=== PATIENT | female | born 1960 | race American Indian/Alaskan Native ===

== ENCOUNTER 2016-10-07 17:54 | Emergency (ER) | payer BC ==
[2016-10-07] MEDS ORDERED: CATAPRES PO ONE (18:05)
[2016-10-07 18:51] LABS: Hematocrit 41.5 % (30.3-42.9); Hemoglobin 13.4 gm/dl (10.1-14.3); Mean Corpuscular HGB Conc 32 % (30-34); Mean Corpuscular Hemoglobin 28 pg (28-32); Mean Corpuscular Volume 86 fl (79-97); Platelet Count 200 K/mm3 (140-440); Red Blood Count 4.84 M/mm3 (3.65-5.03); Red Cell Distribution Width 14.1 % (13.2-15.2); White Blood Count 9.5 K/mm3 (4.5-11.0)
[2016-10-07 19:02] LABS: Carbon Dioxide 28 mmol/L (22-30)
[2016-10-07 19:03] LABS: Anion Gap 18 mmol/L; BUN/Creatinine Ratio 21.42; Blood Urea Nitrogen 15 mg/dL (7-17); Calcium 9.3 mg/dL (8.4-10.2); Chloride 97.4 mmol/L (98-107); Glucose 232 mg/dL (65-100); Sodium 139 mmol/L (137-145)
[2016-10-07 19:19] LABS: Bacteria,Urine 1+ /HPF (Negative); Bilirubin,Urine NEG (Negative); Blood,Urine NEG (Negative); Ketones,Urine NEG (Negative); Leukocyte Esterase,Urine LG (Negative); Mucus,Urine FEW /HPF; Nitrite,Urine NEG (Negative); Urobilinogen,Urine < 2.0 mg/dL (<2.0)
[2016-10-07] MEDS ORDERED: TORADOL IV ONE (20:02)
[2016-10-07] MEDS ORDERED: APRESOLINE IV ONE (20:02)
--- NOTE | 2016-10-07 20:07 | Emergency Department Report ---
ED Headache HPI - General Chief Complaint: High BP Stated Complaint: HIGH BP Time Seen by Provider: 10/07/16 19:29 Source: patient Exam Limitations: no limitations - History of Present Illness Initial Comments: 56 yo female patient with a history of diabetes and hypertension presents to the hospital with complaints of uncontrolled high blood pressure, headache, and neck pain. Patient states that Wesley (3 days ago) morning she woke up with right-sided neck pain. She initially thought she slept wrong. Pain is constant , aching, rated 8/10 intensity, and worse with moving head to the right. Patient denies posterior neck pain. She also complains of frontal headache and pain behind her eyes since yesterday. Headache is intermittent and sharp. No aggravating or alleviating factors. Patient reported blurred vision to triage states she has chronic blurry vision and requires the use of glasses and does not report acute change. Patient checked her blood pressure today and found it to be elevated. She admits that she did not take her blood pressure medication yesterday because she forgot but she did take her dose today. Patient takes atenolol 50 mg daily, metformin twice a day, insulin, and simvastatin. She states she supposedly on atenolol/diuretic medication but it appears that the pharmacy gave her just plain atenolol for 2-3 weeks. She did not realize that her current blood pressure medication lacked the diuretic that she is supposed to be on until I brought it to her attention. She states that the pharmacy must have filled the wrong refill since she used to take just plain atenolol in the past Allergies/Adverse Reactions: Allergies No Known Allergies Allergy (Verified 06/21/14 10:28) Home Medications: Ambulatory Orders Atenolol [Tenormin] 50 mg PO DAILY 10/07/16 Atenolol/Chlorthalidone [Tenoretic 50-25] 1 tab PO QDAY #30 tab 10/07/16 Ibuprofen [Motrin] 800 mg PO Q8HR PRN #30 tablet 10/07/16 Simvastatin [Zocor TAB] 20 mg PO QHS 10/07/16 Syringe & Needle,Insulin,1 ml [Insulin Syringe/Needle 1 ML] 24 each [facility] metFORMIN [Glucophage] 500 mg PO BID 10/07/16 traMADol [Ultram 50 MG tab] 50 mg PO Q6HR PRN #20 tablet 10/07/16 ED Review of Systems ROS: Stated complaint: HIGH BP Other details as noted in HPI Comment: All other systems reviewed and negative Other: Constitutional: No fevers chills Eyes: No eye pain visual changes ENT: No ear pain or throat pain Neck: As per HPI Respiratory: Denies cough wheezing shortness of breath Cardiovascular: Denies chest pain, palpitations, syncope GI: Denies abdominal pain, nausea, vomiting, diarrhea : Denies dysuria Musculoskeletal: Denies back pain Skin: Denies rash, lesions, erythema Neurologic: as per hpi Psychiatric: Denies suicidal ideation, hallucinations ED Past Medical Hx - Past Medical History Hx Hypertension: Yes Hx Diabetes: Yes - Surgical History Additional Surgical History: Hyst. - Social History Smoking Status: Former Smoker Substance Use Type: None - Medications Home Medications: Home Medications Medication Instructions Recorded Confirmed Last Taken Type Atenolol [Tenormin] 50 mg PO DAILY 10/07/16 10/07/16 1 Day Ago History 50 Atenolol/Chlorthalidone [Tenoretic 1 tab PO QDAY #30 tab 10/07/16 Unknown Rx 50-25] Ibuprofen [Motrin] 800 mg PO Q8HR PRN #30 tablet 10/07/16 Unknown Rx Simvastatin [Zocor TAB] 20 mg PO QHS 10/07/16 10/07/16 1 Day Ago History 20 Syringe & Needle,Insulin,1 ml 24 each [facility] HS 10/07/16 10/07/16 1 Day Ago History [Insulin Syringe/Needle 1 ML] 24 metFORMIN [Glucophage] 500 mg PO BID 10/07/16 10/07/16 1 Day Ago History 500 traMADol [Ultram 50 MG tab] 50 mg PO Q6HR PRN #20 tablet 10/07/16 Unknown Rx ED Physical Exam - General Limitations: No Limitations - Other Other exam information: General: No limitations, patient is alert in no acute distress Head exam: Atraumatic, normocephalic Eyes exam: Normal appearance, pupils equal reactive to light, extraocular movements intact ENT: Moist mucous membrane, normal oropharynx Neck exam: Normal inspection, full range of motion, no meningismus, tenderness to right sternocleidomastoid increased pain with turning head to the right Respiratory exam: Clear to auscultation bilateral, no wheezes, rales, crackles Cardiovascular: Normal rate and rhythm, normal heart sounds Abdomen: Soft, nondistended, and nontender, with normal bowel sounds, no rebound, or guarding Extremity: Full range of motion normal inspection no deformity Back: Normal Inspection, full range of motion, no tenderness Neurologic: Alert, oriented x3, cranial nerves intact, no motor or sensory deficit Psychiatric: normal affect, normal mood Skin: Warm, dry, intact ED Course Vital Signs 10/07/16 10/07/16 10/07/16 17:58 19:08 19:55 Temperature 97.5 F L Pulse Rate 66 70 69 Respiratory 18 18 18 Rate Blood Pressure 224/113 245/116 Blood Pressure 214/91 [Left] O2 Sat by Pulse 100 97 Oximetry 10/07/16 10/07/16 10/07/16 20:09 20:36 20:53 Temperature Pulse Rate 72 80 Respiratory 18 18 Rate Blood Pressure 189/89 Blood Pressure 189/82 [Left] O2 Sat by Pulse 98 Oximetry - Reevaluation(s) Reevaluation #1: 10/07/16 20:08 Patient see clonidine 0.2 mg in triage with minimal reduction in blood pressure. Additional hydralazine 10 mg IV and Toradol for pain ordered in the ED 10/07/16 21:13 BP improved after Hydralazine. Anthony improved ED Medical Decision Making - Lab Data Result diagrams: 10/07/16 18:28 10/07/16 18:25 Lab Results 10/07/16 10/07/16 10/07/16 Range/Units 18:25 18:28 18:30 WBC 9.5 (4.5-11.0) K/mm3 RBC 4.84 (3.65-5.03) M/mm3 Hgb 13.4 (10.1-14.3) gm/dl Hct 41.5 (30.3-42.9) % MCV 86 (79-97) fl MCH 28 (28-32) pg MCHC 32 (30-34) % RDW 14.1 (13.2-15.2) % Plt Count 200 (140-440) K/mm3 Sodium 139 (137-145) mmol/L Potassium 4.0 (3.6-5.0) mmol/L Chloride 97.4 L (98-107) mmol/L Carbon Dioxide 28 (22-30) mmol/L Anion Gap 18 mmol/L BUN 15 (7-17) mg/dL Creatinine 0.7 (0.7-1.2) mg/dL Estimated GFR > 60 ml/min BUN/Creatinine Ratio 21.42 % Glucose 232 H (65-100) mg/dL Calcium 9.3 (8.4-10.2) mg/dL Urine Color Yellow (Yellow) Urine Turbidity Cloudy (Clear) Urine pH 6.0 (5.0-7.0) Ur Specific [place] 1.015 (1.003-1.030) Urine Protein 100 mg/dl (Negative) mg/dL Urine Glucose (UA) 50 (Negative) mg/dL Urine Ketones Neg (Negative) mg/dL Urine Blood Neg (Negative) Urine Nitrite Neg (Negative) Urine Bilirubin Neg (Negative) Urine Urobilinogen < 2.0 (<2.0) mg/dL Ur Leukocyte Esterase Lg (Negative) Urine WBC (Auto) 123.0 H (0.0-6.0) /HPF Urine RBC (Auto) 4.0 (0.0-6.0) /HPF U Epithel Cells (Auto) 2.0 (0-13.0) /HPF Urine Bacteria (Auto) 1+ (Negative) /HPF Urine Mucus Few /HPF - Radiology Data Radiology results: report reviewed (CVA: Mild chronic microvascular ischemic disease no acute findings) - Medical Decision Making Plan to discharge patient on the medication she is supposed to be on. Also will be treated for a neck strain - Differential Diagnosis sah, ich, htn emerg, htn urg Critical Care Time: No Critical care attestation.: If time is entered above; I have spent that time in minutes in the direct care of this critically ill patient, excluding procedure time. ED Disposition Clinical Impression: Hypertension, uncontrolled, Noncompliance with medication regimen Neck muscle strain Qualifiers: Encounter type: initial encounter Qualified Code(s): S16.1XXA - Strain of muscle, fascia and tendon at neck level, initial encounter Disposition: OP ADMITTED IP TO THIS HOSP Is pt being admited?: No Does the pt Need Aspirin: No Condition: Stable Instructions: Cervical Sprain (ED), Hypertension (ED) Additional Instructions: I have restarted you on your medication then includes a diuretic for your blood pressure. Take his medication as prescribed. You may take the medication provided for as needed. Return if symptoms worsen. Prescriptions: Atenolol/Chlorthalidone [Tenoretic 50-25] 1 tab PO QDAY #30 tab Ibuprofen [Motrin] 800 mg PO Q8HR PRN #30 tablet PRN Reason: Pain traMADol [Ultram 50 MG tab] 50 mg PO Q6HR PRN #20 tablet PRN Reason: Pain Referrals: PRIMARY CARE, [Primary Care Provider] - 3-5 Days Time of Disposition: 21:14
--- NOTE | 2016-10-07 20:20 | Cat Scan Report ---
FINAL REPORT EXAM: CT HEAD/BRAIN WO CON HISTORY: headache, htn TECHNIQUE: CT was performed from the foramen magnum through the vertex in the axial plane without the use of intravenous contrast. PRIORS: 03/02/2013 FINDINGS: There is mild patchy white matter lucency consistent with chronic microvascular ischemic disease without change. There is no mass lesion or mass effect. There are no abnormal extra-axial fluid collections. There is no evidence of acute intracranial hemorrhage or infarct. The ventricles are of normal size and configuration. The skull and orbits are unremarkable. The visualized paranasal sinuses are clear. IMPRESSION: Mild chronic microvascular ischemic disease. No acute findings.
[2016-10-07 21:38] VITALS: BP 138/68
== END 2016-10-07 21:55 | disposition admitted as inpatient to this hospital (09) ==
LOC: ED 17:54
DX: S16.1XXA Strain of muscle, fascia and tendon at neck level, initial encounter (principal); I10 Essential (primary) hypertension; Z91.14 Patient's other noncompliance with medication regimen; E11.9 Type 2 diabetes mellitus without complications; Z87.891 Personal history of nicotine dependence; X58.XXXA Exposure to other specified factors, initial encounter; Y93.9 Activity, unspecified; Y92.89 Other specified places as the place of occurrence of the external cause; Y99.9 Unspecified external cause status
CPT/HCPCS: 36415; 70450; 80048; 81001; 85027; 96374; 96375; 99285; J0360; J1885

== ENCOUNTER 2017-01-23 14:15 | Outpatient (CLI) | payer BC ==
--- NOTE | 2017-01-23 15:33 | Mammography Report ---
BILATERAL MAMMOGRAM with CAD: HISTORY:Cancer screening. Comparison study is dated April 27, 2015. FINDINGS: The breasts are almost entirely fat (<25% glandular). No mass, distortion, suspicious calcification, or skin change is seen. IMPRESSION: Negative mammogram. There is no mammographic evidence of malignancy. RECOMMENDATION: Follow-up per ACS guidelines. BI-RADS CATEGORY: 1 = Negative ACR BI-RADS MAMMOGRAPHIC CODES: 0 = Needs additional imaging evaluation; 1 = Negative; 2 = Benign; 3 = Probably benign; 4 = Suspicious; 5 = Malignant; 6 = Known biopsy-proven malignancy COMMENT: 1. Dense breast tissue, i.e., adenosis, fibrocystic changes, etc., may obscure an underlying neoplasm. 2. Approximately 10% of cancers are not detected with mammography. 3. A negative mammography report should not delay biopsy if a clinically suspicious mass is present. COMMENT: Patient follow-up letters are generated in [employer].
== END 2017-01-23 14:16 | disposition home or self-care (01) ==
LOC: MAMMO 14:15
PROVIDERS: ATTEND Internal Medicine
DX: Z12.31 Encounter for screening mammogram for malignant neoplasm of breast (principal); I10 Essential (primary) hypertension
CPT/HCPCS: 77067; G0202